=== PATIENT | female | born 1950 | race Caucasian/White ===

== ENCOUNTER 2018-04-13 13:50 | Inpatient (IN) ==
--- NOTE | 2018-04-13 06:54 | Discharge Summary ---
<Rupert Zamudio - Last Filed: 04/13/18 14:47> Orders not resulted at time of discharge: Pending orders 04/13/18 06:54 XR shoulder complete RT [XR] Routine H/H [Hemoglobin and Hematocrit] [HEME] Routine 04/13/18 16:00 Sodium Stat Date of Encounter: 04/13/18 - Discharge Diagnosis (1) Rotator cuff arthropathy of right shoulder Priority: Primary Status: Chronic (2) Status post reverse total arthroplasty of right shoulder Priority: Primary Status: Acute (3) History of anesthesia reaction Priority: Secondary Status: Chronic (4) Hyponatremia Priority: Secondary Status: Chronic (5) Cholinesterase deficiency Priority: Secondary Status: Chronic - Hospital Course Hospital course: Ms. Armendariz is a 67 year old female - Time Spent with Patient Total time spent providing and/or coordinating discharge services: - Discharge Medications Home Medications: Acetaminophen [Tylenol] 975 mg PO ONCE PRN 04/13/18 [History] Cetirizine HCl [24Hour Allergy] 20 mg PO DAILY 04/13/18 [History] Ibuprofen 800 mg PO DAILY PRN 04/13/18 [History] Metoprolol Succinate [Toprol Xl] 25 mg PO Q48H 04/13/18 [History] OxyCODONE Immed Rel [Roxicodone 5 MG] 5 mg PO Q6HR PRN 7 Days #28 tablet [Rx] Allergies/Adverse Reactions: 3 Allergy/AdvReac Type Severity Reaction Status Date / Time cephalexin Allergy Hives Verified 04/13/18 14:17 Cephalosporins Allergy Hives Verified 04/13/18 14:17 Penicillins Allergy Hives Verified 04/13/18 14:17 low cholinesterase Allergy See Uncoded 04/08/18 14:48 Comments Primary care physician: Richard Godinez MD - Patient Status Disposition: Home Health Service Condition: Good - Discharge Instructions Follow Up With: Mikaela Clay PAC [Physician Executive Sales Assistant] - 04/23/18 2:15 pm Richard Godinez MD [Primary Care Provider] - Additional Instructions: Discharge Instructions: Total Shoulder Please call [facility] ([phone]), your Primary Care Physician, or report to the Emergency Room if you have any of the following symptoms: Nausea, vomiting, fever greater that 101.5, swelling, chest pain, shortness of breath, increased pain/redness/drainage/odor for your incision site, numbness/ tingling, or any other concerning symptoms. ACTIVITY: Always keep your arm in the sling. Do not raise your arm away from your body. Do not use your arm to help with getting in or out of bed. No weight bearing permitted. Only perform those exercises given to you by your therapist. Incentive Spirometer 10 times an hour. MEDICATIONS: Upon discharge resume your home medications. Take all the medications as prescribed. Take a stool softener if taking narcotic pain medications. Stool softeners are only effective if you drink enough fluids. Drink 6-8 glass of water or fluids a day, unless this is not allowed for another health problem. Despite using stool softeners, if you haven't had a bowel movement in 3 days, please switch to a gentle laxative. Gentle laxatives are sold over the counter. You should have a bowel movement within 24 hours, if not call the office. You will be discharged from the hospital with a prescription for pain medication. You are encouraged to decrease the use of narcotic pain medication as tolerated. Should you require a refill, please call the office. [facility] prescribes narcotic pain medication for only 4-6 weeks after surgery. If you require pain medication beyond this time period, you may be referred to your Primary Care Physician or to the Pain Clinic for further evaluation. Plan ahead for refills on pain medication as many narcotics either need to be picked up at the office or mailed. It is best to call 48-72 hours in advance of needing a prescription refill so you don't run out of medication. To help control the post-operative pain, you may take NSAIDs (Aleve,Advil, Motrin, Ibuprofen, Naprosyn) or Tylenol as prescribed on the bottle in addition to the pain medication. WOUND CARE: Leave the dressing on for 7-10 days. You may change the dressing if it becomes saturated greater than 50%. Do not get the dressing wet at anytime. Wash your hands with antibacterial soap, rinse and dry prior to any wound care. If you have stefany the visiting nurse or rehab facility can remove the stapes 10-14 days after surgery and place steri-strips across the wound. Leave the steri-strips in place until they fall off on their own. You may let water from the shower run on top of the steri-strips. If you do not have a visiting nurse or rehab facility, you will need to return to the office at 10-14 days for the stefany to be removed. If you have itching or redness around the dressing call the office. FOLLOW-UP: Please follow up with your surgeon in the orthopedic clinic, as scheduled <Mikaela Clay - Last Filed: 04/14/18 17:39> Orders not resulted at time of discharge: Pending orders 04/13/18 06:54 XR shoulder complete RT [XR] Routine H/H [Hemoglobin and Hematocrit] [HEME] Routine Date of Encounter: 04/14/18 Time of Encounter: 17:38 - Discharge Diagnosis (1) Rotator cuff arthropathy of right shoulder Priority: Primary Status: Chronic (2) Status post reverse total arthroplasty of right shoulder Priority: Primary Status: Acute (3) History of anesthesia reaction Priority: Secondary Status: Chronic (4) Hyponatremia Priority: Secondary Status: Chronic - Hospital Course Hospital course: Ms. Armendariz is a 67 year old female, status post Right TSR-r - with a history of hyponatremia . Patient had uneventful postoperative course. Stable for discharge. Patient seen at bedside, without complaints. A&O x 3 Afebrile, vital signs stable. Vital Signs Temp Pulse Resp BP Pulse Ox 04/14/18 10:59 97.8 F 67 16 108/66 93 04/14/18 07:15 97.5 F L 75 14 128/64 100 04/14/18 03:25 97.5 F L 57 14 133/67 98 04/13/18 23:05 97.5 F L 59 16 129/70 97 04/13/18 19:50 97.7 F 66 19 153/73 97 04/13/18 18:48 97.4 F L 80 14 130/80 96 04/13/18 18:30 98.2 F 80 14 134/68 96 04/13/18 18:20 80 12 145/69 94 04/13/18 18:10 98.2 F 80 16 147/72 98 04/13/18 18:00 83 16 141/75 100 04/13/18 17:50 93 16 148/80 99 04/13/18 17:40 97.7 F 104 16 154/91 92 Intake and Output 04/14/18 04/14/18 04/14/18 07:59 15:59 23:59 Intake Total 525 / 525 360 / 360 Balance 525 / 525 360 / 360 Intake: IV Fluids 50 / 50 Cleocin Premix 900 MG/50 ML 900 50 / 50 mg In 50 ml @ 50 mls/hr IVPB Q8HR DIMAS Rx#:[id number] Oral 475 / 475 360 / 360 Other: Meal Breakfast Percent of Meal Consumed 100% # Voids 1 Labs reviewed. H/H - stable, asymptomatic Hyponatremia - asympomatic - stable. Recheck with HH in AM. Sodium tab given. Short CBC 04/14/18 04/13/18 Range/Units 01:49 18:01 Hgb 10.9 L 12.0 (11.5-15.4) g/dL Hct 31.8 L 36.1 (35.3-44.9) % BMP 04/14/18 04/13/18 Range/Units 12:55 18:01 Sodium 127 L 131 L (136-145) mEq/L Pain control: adequate Participating in PT. All questions and concerns addressed. Educated on use of incentive spirometer. Encouraged ambulation and proper hydration. Patient educated on post-operative restrictions and post-operative care. Assessment and plan: Continue with postoperative care Discharge plan: Home , discharge today - Time Spent with Patient Total time spent providing and/or coordinating discharge services: Primary care physician: Richard Godinez MD - Patient Status Functional capacity at discharge: independent ambulation Overall status at discharge: patient is back to baseline - Diet and Activity Activity: as per the cardiac rehab
[2018-04-13] MEDS ORDERED: ROPIVACAINE HCL/PF 0.5% 30 ML VIAL ONE ×2 (14:24→16:12)
[2018-04-13] MEDS ORDERED: Bupivacaine/Clonidine Syringe 1 EACH SYRINGE ONE ×2 (14:24→16:13)
--- NOTE | 2018-04-13 14:47 | History & Physical Report ---
Date of Encounter: 04/13/18 Time of Encounter: 14:47 24 Hour HP Update - Instructions Instructions: If the History and Physical is less than 30 days old and was completed prior to A.M. admission and or procedure and has NOT been updated on calendar day of procedure please complete this update prior to performing procedure. - Update Patient reports changes in Medical Condition: No Changes in examination, assessment, or condition: No Changes in Medication: No Preop tests/diagnostics Reviewed: Yes Surgery Remains Indicated: Yes Consent for Planned Operative Procedure(s) Verified: Yes - Pre-Operative Checklist Preoperative Checklist Indicated: No Prophylactic Antibiotic Ordered: Yes Is VTE Prophylaxis Indicated?: Yes
[2018-04-13] MEDS ORDERED: Clindamycin 900 MG/50 ML 900 MG/50 ML IV.SOLN IVPB ONE (14:52)
[2018-04-13] MEDS: Ringers Solution, Lactated 1,000 ML IVC SCH ×2 (15:09→18:15)
[2018-04-13] MEDS ORDERED: Acetaminophen IV 1,000 MG/100 ML INFUS..BTL IVPB ONE (15:32)
[2018-04-13] MEDS ORDERED: Famotidine 20 MG/2 ML VIAL IVP ONE (15:32)
[2018-04-13] MEDS ORDERED: Pregabalin 75 MG CAPSULE PO ONE (15:33)
--- NOTE | 2018-04-13 15:36 | Anesthesia Evaluation PreOp ---
Date of Encounter: 04/13/18 Time of Encounter: 15:35 - Past History Planned Operation: Rt Total Shoulder Replacement Cardiac History: HTN Pulmonary History: Denies Any Significant HX [employer]IC History: Denies Any Significant HX Other Medical History: Other (Rheumatoid Arthritis) Anesthesia History: Past Anesthesia (BPS and 5 Hip Surgeries), Problems ( Prolonged Intubation with first surgery) Alcohol Use: none Drug use: none Medications and Allergies Acetaminophen [Tylenol] 975 mg PO ONCE PRN 04/13/18 [History] Cetirizine HCl [24Hour Allergy] 20 mg PO DAILY 04/13/18 [History] Ibuprofen 800 mg PO DAILY PRN 04/13/18 [History] Metoprolol Succinate [Toprol Xl] 25 mg PO Q48H 04/13/18 [History] OxyCODONE Immed Rel [Roxicodone 5 MG] 5 mg PO Q6HR PRN 7 Days #28 tablet [Rx] 3 Allergy/AdvReac Type Severity Reaction Status Date / Time cephalexin Allergy Hives Verified 04/13/18 14:17 Cephalosporins Allergy Hives Verified 04/13/18 14:17 Penicillins Allergy Hives Verified 04/13/18 14:17 low cholinesterase Allergy See Uncoded 04/08/18 14:48 Comments - Meds/Allergy Pre-op Review Medications Reviewed: Yes Allergies Reviewed: Yes Beta Blockers on Current Med List: No Anesthesia Results - Labs Laboratory Tests 04/08/18 04/08/18 15:10 15:10 Hgb 11.5 Hct 34.3 L Plt Count 481 H Sodium 129 L Potassium 4.1 BUN 17 Creatinine 0.62 - Imaging EKG: report reviewed (SR) Anesthesia Exam O2 Sat Height 1.68 m Height 1.68 m Weight 60.781 kg Weight 60.781 kg O2 Sat by Pulse Oximetry 98 Vital Signs Temp Pulse Resp BP Pulse Ox 98.7 F 70 16 131/64 98 04/13/18 14:58 04/13/18 14:58 04/13/18 14:58 04/13/18 14:58 04/13/18 14:58 Height: 5'6 Weight: 134 lbs NPO (# of Hours): MN Pain Scale: 0 - HEENT Pupil (Motor): Pupils equal, EOMI Mallampati: II Teeth: Normal Oral Opening: Greater than 3 - [employer] LOC: Oriented [employer] Motor: Normal RUE, Normal LUE, Normal RLE, Normal LLE, Normal Face [employer] Sensory: Normal: RUE, LUE, RLE, LLE, Face - Cardiac Rhythm: Regular Murmur: None JVD: No Carotid Bruit: No - Pulmonary Breath Sounds: bilateral Clear Respiratory Effort: Symmetrical Anesthesia Assess/Plan ASA Score: 2 Modified Ashia Scale for Level of Consciousness: Cooperative, oriented, and tranquil Anesthetic Plan: General, Regional Monitoring Plan: Standard Monitors Recovery Plan: PACU (Discussed GA and Supraclav Block,agrees to proceed)
[2018-04-13] MEDS ORDERED: *HR* FentaNYL (PF) 100 MCG/2 ML VIAL ONE (15:42)
[2018-04-13] MEDS ORDERED: *HR* Propofol 200 MG/20 ML VIAL IVP ONE (15:43)
[2018-04-13] MEDS ORDERED: *HR* Midazolam HCl 2 MG/2 ML VIAL ONE (15:43)
[2018-04-13] MEDS ORDERED: *HR* Succinylcholine 200 MG/10 ML VIAL IVP ONE (15:45)
[2018-04-13] MEDS ORDERED: Lidocaine -MPF 2% 2 ML VIAL ONE (15:45)
[2018-04-13] MEDS ORDERED: Lacri-Lube 3.5 GM TUBE ONE (16:46)
[2018-04-13] MEDS ORDERED: *HR* PHENYLEPHRINE 1,000 MCG/10 ML SYRINGE IVP ONE ×2 (16:49→17:15)
[2018-04-13] MEDS ORDERED: *HR* Promethazine 25 MG/ML VIAL IVP PRN (17:02)
[2018-04-13] MEDS ORDERED: Ondansetron 4 MG/2 ML VIAL IVP ONE (17:02)
--- NOTE | 2018-04-13 17:06 | Anesthesia Procedures ---
Date of Encounter: 04/13/18 Time of Encounter: 17:04 Procedures: Anesthesia - Nerve Block Procedure Date: 04/13/18 Time: 17:04 Allergies/Adv Reactions: cephalexin Allergy (Verified 04/13/18 14:17) Hives Cephalosporins Allergy (Verified 04/13/18 14:17) Hives Penicillins Allergy (Verified 04/13/18 14:17) Hives low cholinesterase Allergy (Uncoded 04/08/18 14:48) See Comments Pre-op Diagnosis: right shoulder rotator cuff arthropathy Surgical Procedure: right shoulder reverse ball Checklist: Correct Patient Identifier, Correct procedure, History checked Correct side: Right Blood Thinner: No Monitor Applied: EKG, BP, Pulse Oximetry Supplemental Oxygen via Nasal Cannula (L/min): 2 Sedation: Versed (mg): 2 Sedation: Fentanyl (mcg): 100 Indication: Post Op Analgesia Pre-op Neuro Deficits: No Block Type: Supraclavicular Catheter placed: No Sterile Technique: Yes Ultrasound used: Yes Anatomy identified: Yes Visual spread of Local: Yes Neuro Stimulation: No Blood on Needle Aspiration: No Smooth Injection of Local: Yes Pain with Injection of Local: No Prep: Chlorhexadine Needle: 22 x 50 mm Stimuplex Local: 0.25% Bupivicaine w/Clonidine 20 mcg/cc (20cc for SCP), Ropivacaine (0.5 % 30cc for supraclav) Volume (cc): 50 Number of Attempts: 1 Complications: None/effective block
--- NOTE | 2018-04-13 17:27 | Orthopedic Operative Note ---
Date of procedure: 04/13/18 Pre-op diagnosis: Right cuff tear arthropathy Post-op diagnosis: same Procedure: Procedure: Total Shoulder Replacment Reverse, right Estimated blood loss: 100 cc Hardware: Metal and polyethylene replacement: Arthrex medium glenoid baseplate , 2 4.5 screws. 1 6.5 screw, 39+4 glenosphere, 7 humeral stem, poly insert 3 and 6 metal Exam Under anesthesia: Full motion no instability Procedural Notes: Irreparable tear supraspinatus tendon. Operative procedure: The patient was brought to the operating room and placed on the operating room table. After general anesthesia was administered the operative shoulder was examined. Findings were noted. The patient was placed in the modified beachchair position. All pressure points were padded appropriately. And the head was stabilized in the neutral position. The operative extremity was prepped and draped in the sterile surgical fashion. The patient received IV antibiotics prior to skin incision. A standard deltopectoral approach was made to the operative shoulder. Incision was made to the skin and subcutaneous tissue,hemo stasis was obtained with Bovie cautery. Using careful blunt dissection the cephalic vein was identified and mobilized medially. The deltopectoral interval was developed and the clavipectoral fascia was incised. The subscap was released off the lesser tuberosity and tagged with #2 FiberWire suture subscap was irreparable.. The humerus was dislocated patient noted to have irreparable tear supraspinatus tendon, and the humeral cut was made along the anatomic neck. Anterior and posterior Bankart retractors were placed to expose the glenoid. The glenoid guide was seated and the centering hole was made. It was reamed with the appropriate reamer. The medium baseplate was seated and secured with (2) 4.5 screws and one 6.5 screw. The baseplate was irrigated and dried and the 39+4 Glenosphere was seated and secured with the James taper. The James taper was tested and found to be secure the humerus was redislocated and prepared with the diaphyseal reamers, followed by a broaching process up to the appropriate size 7 in the patient's anatomic version. The metaphyseal reamer was then utilized. Trial reduction found the shoulder to be relocatable. Trial components were removed and the 7 stem was impacted in place in the patient's anatomic version. Trial reduction found the shoulder to be relocatable and stable with the appropriate 6 metal 3 Adenike Trial component was removed and the real implants was seated and secured the shoulder was reduced. The shoulder had excellent motion and excellent stability and no evidence of dislocation. The deep tissue was irrigated with pulse irrigation. The PA close the shoulder. The deltopectoral interval was closed with a running #1 PDS suture, subcutaneous tissue was irrigated and closed with 0 PDS suture, the skin was closed with Dermabond. The patient was placed in a sterile dressing, abduction brace and extubated. The patient was then transferred to the recovery room in stable condition. Anesthesia: GETA Surgeon: Rupert Zamudio Was there an licensed sales assistant present: Yes Travel Agency Manager: Mikaela Clay Estimated blood loss (cc): 100 Condition: stable Disposition: PACU
[2018-04-13] MEDS ORDERED: *HR* OxyCODONE Immed Rel 5 MG TABLET PO PRN (17:50)
[2018-04-13] MEDS ORDERED: *HR* HYDROmorphone (PF) 1 MG/ML SYRINGE ONE (17:54)
[2018-04-13] MEDS: *HR* HYDROmorphone (PF) 1 MG/ML SYRINGE IVP PRN ×2 (17:55→18:00)
[2018-04-13] MEDS ORDERED: *HR* Enoxaparin 30 MG/0.3 ML SYRINGE SQ SCH (18:00)
[2018-04-13 18:14] LABS: Hematocrit 36.1 % (35.3-44.9)
[2018-04-13] MEDS ORDERED: Sennosides 8.6 MG TABLET PO PRN (18:40)
[2018-04-13] MEDS ORDERED: MOM Conc 10 ML UD.LIQ PO PRN (18:40)
[2018-04-13] MEDS ORDERED: Temazepam 15 MG CAPSULE PO PRN (18:40)
[2018-04-13] MEDS ORDERED: Metoprolol XL (24 HR) Succ 25 MG TAB.ER.24H PO SCH (18:40)
[2018-04-13] MEDS ORDERED: Ondansetron 4 MG/2 ML VIAL IVP PRN (18:40)
[2018-04-13] MEDS ORDERED: Naloxone 0.4 MG/ML INJ IVP PRN (18:40)
[2018-04-13] MEDS ORDERED: *HR* OxyCODONE/APAP 5/325 TABLET PO PRN (18:40)
[2018-04-13] MEDS ORDERED: traMADol 50 MG TABLET PO PRN (18:40)
--- NOTE | 2018-04-13 19:07 | Anesthesia Evaluation Post Op ---
Date of Encounter: 04/13/18 Time of Encounter: 19:00 - Vital Signs Vital Signs: Vital Signs/O2 Sat/Glucose, Most Current Temp Pulse Resp BP Pulse Ox 04/13/18 18:48 97.4 F L 80 14 130/80 96 04/13/18 18:30 98.2 F 80 14 134/68 96 04/13/18 18:20 80 12 145/69 94 04/13/18 18:10 98.2 F 80 16 147/72 98 04/13/18 18:00 83 16 141/75 100 04/13/18 17:50 93 16 148/80 99 04/13/18 17:40 97.7 F 104 16 154/91 92 04/13/18 16:27 67 131/74 94 04/13/18 16:24 74 151/101 92 - Lungs Lungs: Clear Ascult./Percussion - Airway Airway: Non-obstructed - Cardiovascular Regular Rate - Mental Status Mental Status: Alert & Oriented, Answers Appropriately - Pain Pain Scale: 1 - Nausea Vomiting Nausea Vomiting: Not Present - Hydration Hydration: Ice chips - Discharge PostOp Status: Transfer Patient to floor
[2018-04-13] MEDS: *HR* OxyCODONE Immed Rel 5 MG TABLET PO PRN (23:01)
[2018-04-13] MEDS: Clindamycin 900 MG/50 ML 900 MG/50 ML IV.SOLN IVPB SCH (23:45)
[2018-04-14 02:09] LABS: Hematocrit 31.8 % (35.3-44.9); Hemoglobin 10.9 g/dL (11.5-15.4)
[2018-04-14] MEDS: *HR* OxyCODONE Immed Rel 5 MG TABLET PO PRN ×3 (03:18→11:36)
[2018-04-14] MEDS: Ringers Solution, Lactated 1,000 ML IVC SCH ×2 (03:19→09:05)
[2018-04-14] MEDS ORDERED: *HR* Enoxaparin 30 MG/0.3 ML SYRINGE SQ SCH (06:00)
--- NOTE | 2018-04-14 06:56 | Orthopedics Progress Note ---
Date of Encounter: 04/14/18 Time of Encounter: 06:56 - Assessment and Plan (1) Rotator cuff arthropathy of right shoulder Current Visit: No Status: Chronic (2) Status post reverse total arthroplasty of right shoulder Current Visit: No Status: Acute (3) History of anesthesia reaction Current Visit: No Status: Chronic (4) Hyponatremia Current Visit: No Status: Chronic (5) Cholinesterase deficiency Current Visit: Yes Status: Chronic Subjective Interval history: Patient was seen this morning doing well without complaints. Afebrile vital signs stable. Operative extremity: Neurovascularly intact Dressing clean dry and intact Calves nontender Assessment and plan: Continue with postoperative care Hematocrit 31 discharged today Objective Vital signs: Vital Signs Temp Pulse Resp BP Pulse Ox 04/14/18 03:25 97.5 F L 57 14 133/67 98 04/13/18 23:05 97.5 F L 59 16 129/70 97 04/13/18 19:50 97.7 F 66 19 153/73 97 04/13/18 18:48 97.4 F L 80 14 130/80 96 04/13/18 18:30 98.2 F 80 14 134/68 96 04/13/18 18:20 80 12 145/69 94 04/13/18 18:10 98.2 F 80 16 147/72 98 04/13/18 18:00 83 16 141/75 100 04/13/18 17:50 93 16 148/80 99 04/13/18 17:40 97.7 F 104 16 154/91 92 04/13/18 16:27 67 131/74 94 04/13/18 16:24 74 151/101 92 04/13/18 14:58 98.7 F 70 16 131/64 98 Intake and Output 04/13/18 04/13/18 04/14/18 15:59 23:59 07:59 Intake Total 1380 / 1380 475 / 475 Output Total 100 / 100 Balance 1280 / 1280 475 / 475 Intake: IV Fluids 1000 / 1000 Lactated Ringers 1,000 ML @ 25 1000 / 1000 mls/hr IVC .Q24H DIMAS Rx#: [id number] Oral 380 / 380 475 / 475 Output: Urine 0 / 0 Estimated Blood Loss 100 / 100 Other: # Voids 2 1 Weight 60.781 kg - Labs CBC & BMP: 04/14/18 01:49 04/13/18 18:01 Labs: Abnormal lab results Hgb 10.9 g/dL (11.5-15.4) L 04/14/18 01:49 Hct 31.8 % (35.3-44.9) L 04/14/18 01:49 Sodium 131 mEq/L (136-145) L 04/13/18 18:01 - VTE Documentation of Mechanical Device: Venous foot pump, device Consult Discharge Plan - Plan Referrals: Richard Godinez MD [Primary Care Provider] -
[2018-04-14] MEDS: Clindamycin 900 MG/50 ML 900 MG/50 ML IV.SOLN IVPB SCH (08:32)
[2018-04-14] MEDS ORDERED: Loratadine 10 MG TABLET PO SCH (09:00)
[2018-04-14] MEDS ORDERED: Ketorolac 15 MG/ML VIAL IM ONE (10:33)
[2018-04-14 11:01] VITALS: BP 108/66
--- NOTE | 2018-04-14 17:41 | Physician Discharge Referral ---
Home Health/Hosp Referral Info Transfer to: Home Health Provider in Charge Post Discharge: PCP - Diagnosis (1) Rotator cuff arthropathy of right shoulder Priority: Primary Status: Chronic (2) Status post reverse total arthroplasty of right shoulder Priority: Primary Status: Acute (3) History of anesthesia reaction Status: Chronic (4) Hyponatremia Priority: Secondary Status: Chronic - Respiratory Orders None Smoking Cessation: Smoking cessation has been advised. For more information, call the [place] Tobacco Quit Line at 9-373-HBGR-NOW. - Diet/Nutrition Diet/Nutrition Orders: Mechanical Soft - Activity Activity Orders: Up ad angel - Services Needed Following services are medically necessary services: Nursing, Home Health Aide, Physical Therapy, Occupational Therapy Home Care Orders: Opsite dressing, leave intact until first post-operative visit. Zipline/S[place] in place, plan to remove at post-operative day #14-16. If dressing becomes >50% saturated, contact office, remove dressing and place appropriate dressing in its place. Do not allow for dressing to get wet. Shoulder Precautions x 6 weeks. Apply cold therapy wrap 3-6x/day for 20 minutes at a time. Encourage ambulation throughout the day. Use Incentive spirometer 10x/hour. Elevate affected extremity above heart as tolerated. NWB to affected upper extremity x 6 weeks. Will remove brace at first post-operative appointment. OK to remove during PT/ OT and Home exercises. HYPONATREMIA - RECHECK SODIUM IN AM - Transfer Medications Home Medications: Acetaminophen [Tylenol] 975 mg PO ONCE PRN 04/13/18 [History] Cetirizine HCl [24Hour Allergy] 20 mg PO DAILY 04/13/18 [History] Ibuprofen 800 mg PO DAILY PRN 04/13/18 [History] Metoprolol Succinate [Toprol Xl] 25 mg PO Q48H 04/13/18 [History] OxyCODONE Immed Rel [Roxicodone 5 MG] 5 mg PO Q6HR PRN 7 Days #28 tablet [Rx] Allergies/Adverse Reactions: 3 Allergy/AdvReac Type Severity Reaction Status Date / Time cephalexin Allergy Hives Verified 04/13/18 14:17 Cephalosporins Allergy Hives Verified 04/13/18 14:17 Penicillins Allergy Hives Verified 04/13/18 14:17 low cholinesterase Allergy See Uncoded 04/08/18 14:48 Comments Certification: Further, I certify that my clinical findings support that this patient is homebound (i.e. absences from home require considerable and taxing effort and are for medical reasons or mandaen services or infrequently or short duration when for other reasons) because: Homebound Reason: Post-surgery restriction and or conditions limit ability to leave home Attestation: My signature below is to certify that this patient is under my care and that I, or nurse practitioner, or a physician's child care center assistant director working with me, has a face-to -face encounter with this patient.
== END 2018-04-14 14:19 | disposition home health service (06) | DRG 483 ==
LOC: SAMDAY 13:50 → 3NENU 18:39
PROVIDERS: ADMIT Orthopaedic Surgery; ATTEND Orthopaedic Surgery